=== PATIENT | female | born 1975 | race Caucasian/White ===

== ENCOUNTER 2022-04-17 20:42 | Emergency (ER) | payer MEDICAID, SELFPAY ==
[2022-04-17 20:44] VITALS: BP 128/88; PULSE 67; RESP 16; TEMP 36.6; O2SAT 98; BMI 41.9
--- NOTE | 2022-04-17 21:40 | PC.NURSE ---
at speaking with pt about POC
[2022-04-17 21:44] LABS: Coronavirus 19, PCR Not Detected (NotDetected); Influenza A, PCR Not Detected (NotDetected); Influenza B, PCR Not Detected (NotDetected)
--- NOTE | 2022-04-17 22:13 | HMH.EDEAR ---
Discharge Plan Disposition Patient Disposition: Home, Self-Care Prescriptions Prescriptions: New prednisone [prednisone] 20 mg tablet 20 mg PO BID Qty: 10 0RF cephalexin [cephalexin] 500 mg capsule 500 mg PO TID Qty: 30 0RF Referrals Follow up/Referrals: Provider,Referral, [Primary Care Provider] - See instructions Clinical Impressions Clinical Impression: Otitis media Instructions Patient Instructions: DI for Otitis Media (Middle Ear Infection)-Child Discharge ED Provider: Isaiah Osullivan Ear HPI General Chief complaint: Ear Stated complaint: CONGETSION AND EAR ACHE Time Seen by Provider: 04/17/22 22:14 Mode of Arrival: Ambulatory Source of Information: Patient and Medical Record Limitations: No Limitations Description of Symptoms (Recalled from ER Triage Doc. by RN): pt states she has had a cough and cold or something for a week and that she now is congested and her right ear is clogged and she cant hear out of it History of Present Illness HPI Narrative: uri sx with fullness and dec hearing rt ear w/o d/c - MD Complaint: ear pain and decreased hearing Location: right ear Duration: constant Severity: moderate Context: recent illness Discharge from ear: no Associated symptoms ear: decreased hearing and rhinorrhea Treatment prior to arrival: none Related Data Previous Rx's Medication Instructions Recorded cephalexin 500 mg capsule 500 mg PO TID #30 caps 04/17/22 prednisone 20 mg tablet 20 mg PO BID #10 tabs 04/17/22 Allergies Allergy/AdvReac Type Severity Reaction Status Date / Time No Known Allergies Allergy Verified 04/17/22 22:06 [facility] Surgical History History of section History of section History of cholecystectomy History of tonsillectomy Tubal ligation status Family History No significant family history Social History Smoking Status: Current every day smoker alcohol intake: never current occupational status: employed Travel in the last 8 weeks: None ROS Obtained: Yes All systems reviewed & no additional complaints except as documented Physical Exam General General appearance: alert Head Head exam: normocephalic Eye Eye exam: Present PERRL and EOMI; Absent scleral icterus ENT ENT exam: Present normal oropharynx Expanded ENT Exam TM/Canal exam: Right TM: effusion Neck Neck exam: Present full ROM and trachea midline Respiratory Respiratory exam: Present normal lung sounds bilaterally Cardiovascular Cardiovascular exam: Present regular rate; Absent systolic murmur Abdominal Exam Abdominal exam: Present soft Neurological Exam Neurological exam: Present alert, oriented X3 and CN II-XII intact Psychiatric Psychiatric exam: Present normal affect Skin Skin exam: Absent rash Medical Decision Making Medical Records Medical records reviewed: Yes I reviewed the patient's medical records. Danny Inquiry Pt receiving controlled substance: No Vital Signs: 04/17/22 20:44 Temperature 97.9 F Temperature Source Oral Pulse Rate [Left] 67 Respiratory Rate 16 Blood Pressure [Right Arm] 128/88 Blood Pressure Mean [Right Arm] 101 02 Sat by Pulse Oximetry 98 Oxygen Delivery Method Room Air Lab Data Lab results reviewed: Yes I reviewed the patient's lab results. Lab Results 04/17/22 21:38: SARS-CoV-2 (PCR) Not detected, Influenza A Untype (PCR) Not detected, Influenza Type B (PCR) Not detected Orders (Tests/Meds): ORDERS Category Date Time Status Rapid PCR Covid and Flu A/B Stat Lab 04/17/22 21:38 Completed Medical Decision Narrative: uri with serous rt otitis media Critical Care Time Critical Care Time Critical Care Time: No Attestation: On 04/17/22, the high probability of a clinically significant, sudden or life threatening deterioration of the foll
[2022-04-17 22:35] VITALS: BP 131/84; PULSE 67; RESP 18; TEMP 36.6; O2SAT 96
== END 2022-04-17 22:20 | disposition home or self-care (01) ==
PROVIDERS: Emergency Provider Emergency Medicine
DX: H66.91 Otitis media, unspecified, right ear (principal); R05.9 Cough, unspecified; J34.89 Other specified disorders of nose and nasal sinuses; F17.210 Nicotine dependence, cigarettes, uncomplicated; Z20.822 Contact with and (suspected) exposure to COVID-19; Z79.52 Long term (current) use of systemic steroids; Z79.899 Other long term (current) drug therapy
CPT/HCPCS: 99283; C9803; U0003; U0005

== ENCOUNTER 2022-06-17 20:56 | Emergency (ER) | payer MEDICAID, SELFPAY ==
[2022-06-17 20:58] VITALS: BP 142/84; PULSE 77; RESP 17; TEMP 36.7; O2SAT 97; BMI 41.0
[2022-06-17 23:14] LABS: Basophils # 0.2 K/mm3 (0-0.2); Chloride 103 mmol/L (98-107); Eosinophils # 0.2 K/mm3 (0.0-0.4); Eosinophils % 2.4 % (0.1-12.0); Hematocrit 43.4 % (37.0-47.0); Hemoglobin 14.4 g/dL (12.2-16.2); Lymphocytes # 2.8 K/mm3 (0.7-4.5); Lymphocytes % 32.9 % (10-50); Mean Corpuscular HGB Conc 33.2 g/dL (31.8-35.4); Mean Corpuscular Hemoglobin 30.9 pg (27.0-31.2); Mean Corpuscular Volume 93.1 fl (81-99); Mean Platelet Volume 9.1 fl (7.4-10.4); Monocytes # 0.5 K/mm3 (0.1-1.0); Monocytes % 5.3 % (1.7-9.3); Neutrophils # 4.9 K/mm3 (1.8-7.8); Neutrophils % 57.5 % (37.0-80.0); Platelet Count 186 K/mm3 (142-424); Red Blood Count 4.66 M/mm3 (4.20-5.40); Sodium 139 mmol/L (136-145); White Blood Count 8.6 K/mm3 (4.8-10.8)
[2022-06-17 23:15] LABS: Potassium 3.9 mmoL/L (3.5-5.1)
--- NOTE | 2022-06-17 23:16 | HMH.EDEXTP ---
Discharge Plan Disposition Patient Disposition: Home, Self-Care Prescriptions Prescriptions: New sulfamethoxazole-trimethoprim [Bactrim DS] 800-160 mg Tablet 1 tab PO Q12H Qty: 14 0RF cephalexin [cephalexin] 500 mg capsule 500 mg PO TID Qty: 30 0RF No Action meloxicam 15 mg tablet 50 mg PO DAILY Label Comments: TAKE 1 TABLET BY MOUTH EVERY DAY sertraline 50 mg tablet 50 mg PO DAILY Label Comments: TAKE 1 TABLET BY MOUTH EVERY DAY Vivitrol 380 mg suspension,extended rel recon 380 mg IM MONTHLY Referrals Follow up/Referrals: Provider,Referral, MD [Primary Care Provider] - See instructions Clinical Impressions Clinical Impression: Cellulitis and abscess of left lower extremity Instructions Patient Instructions: Cellulitis Discharge ED Provider: Isaiah Osullivan Extremity Problem HPI General Chief complaint: Extremity Injury, Lower Stated complaint: AO 06/16 @0200 poss insect bite Time Seen by Provider: 06/17/22 23:16 Mode of Arrival: Family Vehicle Source of Information: Patient and Medical Record Limitations: No Limitations Description of Symptoms (Recalled from ER Triage Doc. by RN): Pt c/o LLE irregular, non-raised redness. Pt states it was present when she woke up. Reports the redness seems to be getting worse and now her LLE hurts to bear weight. Pt reports I think I got bit by something . She took tylenol this morning. Pulses 2+ and redness is blanchable. trace edema present. Pt also c/o of mild itching to site. History of Present Illness HPI Narrative: reddness and tender ant lt lower leg w/o known injury or bite - no fever or other systemic c/o MD Complaint: extremity pain Onset (ago): day(s) Consistency: constant Location: lower extremity Severity scale (1-10): 3 Radiation: distal Associated symptoms: denies other symptoms Related Data Home Medications Medication Instructions Recorded Confirmed meloxicam 15 mg tablet 50 mg PO DAILY Pain 06/17/22 06/17/22 naltrexone microspheres 380 mg 380 mg IM MONTHLY addiction 06/17/22 06/17/22 intramuscular suspension,extended release (Vivitrol) sertraline 50 mg tablet 50 mg PO DAILY Depression 06/17/22 06/17/22 Previous Rx's Medication Instructions Recorded cephalexin 500 mg capsule 500 mg PO TID #30 caps 06/17/22 sulfamethoxazole 800 1 tab PO Q12H #14 tabs 06/17/22 mg-trimethoprim 160 mg tablet (Bactrim DS) Allergies Allergy/AdvReac Type Severity Reaction Status Date / Time No Known Allergies Allergy Verified 04/17/22 22:06 PFSH PFSH Surgical History History of section History of section History of cholecystectomy History of tonsillectomy Tubal ligation status Family History No significant family history Social History Smoking Status: Current every day smoker alcohol intake: never current occupational status: employed Travel in the last 8 weeks: None ROS Obtained: Yes All systems reviewed & no additional complaints except as documented Physical Exam General General appearance: alert Head Head exam: normocephalic Eye Eye exam: Present PERRL and EOMI ENT ENT exam: Present mucous membranes moist Neck Neck exam: Present trachea midline Respiratory Respiratory exam: Absent respiratory distress Cardiovascular Cardiovascular exam: Present regular rate Extremities Exam Extremities exam: Present tenderness and other (lt lower ext consistent with cellulitis -); Absent edema, joint swelling or calf tenderness Neurological Exam Neurological exam: Present alert and CN II-XII intact Skin Skin exam: Absent rash Medical Decision Making Medical Records Medical records reviewed: Yes I reviewed the patient's medical records. Danny Inquiry Pt receiving controlled substance: No Vital Signs: 06/17/22
[2022-06-17 23:17] LABS: Alanine Aminotransferase 17 U/L (12-78); Albumin Level 4.1 g/dl (3.5-5.0); Albumin/Globulin Ratio 1.5 (1.1-1.8); Alkaline Phosphatase 68 U/L (38-126); Anion Gap 9.9 mEq/L (5-15); Aspartate Amino Transferase 25 U/L (14-36); Bilirubin,Total 0.2 mg/dl (0.2-1.3); Blood Urea Nitrogen 8 mg/dl (7-17); Carbon Dioxide 30 mmol/L (22.0-30.0); Creatinine Clearance Estimated 258 mL/min (50-200); Estimated Glomerular Filt Rate 133 ml/min (>60); GFR (African American) 161 ML/MIN (>60); Globulin 2.8 g/dL (1.3-3.2); Total Protein,Serum 6.9 g/dl (6.3-8.2)
[2022-06-17 23:18] LABS: Calcium 9.3 mg/dl (8.4-10.2); Glucose 138 mg/dl (74-100)
[2022-06-17 23:47] LABS: C-Reactive Protein 54.5 mg/L (0-4)
[2022-06-17 23:50] LABS: Erythrocyte Sedimentation Rate 27 mm/hr (0-20)
[2022-06-17 23:53] VITALS: BP 140/82; PULSE 76; RESP 18; TEMP 36.6; O2SAT 98
[2022-06-18 00:02] LABS: Procalcitonin 0.123 ng/mL (0.0-2.0)
== END 2022-06-17 23:56 | disposition home or self-care (01) ==
PROVIDERS: Emergency Provider Emergency Medicine
DX: L03.116 Cellulitis of left lower limb (principal); Z79.899 Other long term (current) drug therapy; F32.A Depression, unspecified
CPT/HCPCS: 80053; 84145; 85025; 85651; 86140; 96365; 99284; J0696